=== PATIENT | female | born 1975 | race Caucasian/White ===

== ENCOUNTER → 2016-10-16 | Outpatient (CLI) | payer OTHER ==
--- NOTE | 2016-10-16 14:24 | Diagnostic Imaging Report ---
Right breast ultrasound. INDICATION: Right breast mass. FINDINGS: At the 8 o'clock zone, 7 cm from the nipple, there is a 1.4 x 0.9 x 1.7-cm mass with deep wall lobulation again demonstrated. This demonstrates no internal color Doppler flow and may represent an extrinsic effect. No adverse development. IMPRESSION: Stable 1.7-cm 8 o'clock right breast cystic lesion with a focal lobulation along its posterior wall without internal vascularity is favored to be debris or extrinsic impression on the cyst rather than a solid nodule. Another followup ultrasound when the patient is due for her bilateral mammogram in February 2017 is recommended to ensure further stability. ACR BI-RADS Category 3: Probably benign findings. Result letter will be mailed to the patient. Note: At least 10% of breast cancer is not imaged by mammography. Dictated by: Dictated on workstation # [id number]
== END ==
LOC: RAD 08:43
PROVIDERS: ATTEND Obstetrics & Gynecology
DX: R92.8 Other abnormal and inconclusive findings on diagnostic imaging of breast (principal)

== ENCOUNTER → 2017-06-22 | Outpatient (CLI) | payer OTHER ==
--- NOTE | 2017-06-22 21:34 | Diagnostic Imaging Report ---
EXAM: Bilateral breast ultrasound. INDICATION: Followup cystic lesion in the outer aspect of the right breast. TECHNIQUE: All four quadrants and the retroareolar region were examined on this study. FINDINGS: The right breast demonstrates a 2 cm cyst at the 8 o'clock zone 7 cm from the nipple. Previously seen septation is not demonstrated at this time. No internal vascularity and no significant debris or nodule. The other 4 quadrants and retroareolar region of the right breast and the 4 quadrants and retroareolar regions of the left breast demonstrate no significant abnormality. IMPRESSION: 2 cm cyst in the outer aspect of the right breast. Dictated by: Dictated on workstation # [id number]
--- NOTE | 2017-06-22 22:33 | Diagnostic Imaging Report ---
Bilateral screening mammogram 2D views with tomosynthesis The current study was also evaluated with a Computer Aided Detection (CAD) system. INDICATION: Screening. No current complaints stated on the questionnaire. COMPARISON: 03/07/2016. FINDINGS: The breasts are composed of heterogeneously dense parenchyma which may decrease mammographic sensitivity. There is a mass measuring 2 cm in the lateral aspect of the right breast with well-circumscribed margins without change from the prior exams. No adverse development or suspicious cluster of calcifications seen. IMPRESSION: Dense breasts. Stable 2 cm lateral right breast mass. Ultrasound evaluation is pending. ACR BI-RADS Category 0: Incomplete. (Needs additional imaging evaluation). Result letter will be mailed to the patient. Note: At least 10% of breast cancer is not imaged by mammography. Dictated by: Dictated on workstation # [id number]
== END ==
LOC: RAD 07:40
PROVIDERS: ATTEND Obstetrics & Gynecology
DX: Z12.31 Encounter for screening mammogram for malignant neoplasm of breast (principal); N60.01 Solitary cyst of right breast
CPT/HCPCS: 77067

== ENCOUNTER → 2018-07-09 | Outpatient (CLI) | payer OTHER ==
--- NOTE | 2018-07-12 09:02 | Diagnostic Imaging Report ---
Indication: Routine screening. Comparison is made with prior mammogram from 06/22/2017 and 03/07/2016. 2-D and 3-D bilateral screening mammography was performed with CAD. Both breasts are heterogeneously dense, limiting the sensitivity of mammography. The lobulated circumscribed mass in the outer portion of the right breast appears to be fairly stable and previously shown to represent a cyst. No new mass or malignant-appearing microcalcifications are seen. Axillae are unremarkable. Impression: BI-RADS category 2 No mammographic features suspicious for malignancy are identified. ACR BI-RADS Category 2: Benign findings. Result letter will be mailed to the patient. Note: At least 10% of breast cancer is not imaged by mammography. Dictated by: Dictated on workstation # [id number]
== END ==
LOC: RAD 10:42
PROVIDERS: ATTEND Obstetrics & Gynecology
DX: Z12.31 Encounter for screening mammogram for malignant neoplasm of breast (principal)
CPT/HCPCS: 77067

== ENCOUNTER → 2018-10-07 | Outpatient (CLI) | payer OTHER ==
--- NOTE | 2018-10-07 19:17 | Diagnostic Imaging Report ---
PROCEDURE: CT sinuses without contrast TECHNIQUE: Multiple contiguous axial images were obtained through the sinuses without the use of intravenous contrast. Coronal and sagittal reformations were then performed. INDICATION: Chronic sinus disease. COMPARISON: None. FINDINGS: Air-fluid level is seen in the left maxillary sinus. Ostiomeatal complexes are patent bilaterally. There is a small mucus retention cyst seen in the floor of the right maxillary sinus. Remainder of the visualized paranasal sinuses is clear. Nasal septum is midline. There is no osseous lesion. Orbits are symmetric. The globes are unremarkable. IMPRESSION: Left maxillary sinusitis. Dictated by: Dictated on workstation # [id number]
== END ==
LOC: RAD 14:34
PROVIDERS: ATTEND Otolaryngology Otolaryngology/Facial Plastic Surgery
DX: J32.0 Chronic maxillary sinusitis (principal)
CPT/HCPCS: 70486

== ENCOUNTER 2018-12-27 11:00 | Outpatient (CLI) | payer OTHER ==
[~2018-12-27] VITALS: Ht 172.7 cm; Wt 68.0 kg
== END 2018-12-27 16:00 | disposition home or self-care (01) ==
LOC: PREOP 11:00
PROVIDERS: ATTEND Otolaryngology Otolaryngology/Facial Plastic Surgery
DX: Z01.818 Encounter for other preprocedural examination (principal)

== ENCOUNTER 2018-12-30 07:34 | Day surgery (SDC) | payer OTHER ==
[~2018-12-30] VITALS: Ht 172.7 cm; Wt 68.0 kg
[2018-12-30] VITALS (13 sets, daily range): BP systolic 131–157; BP diastolic 90–114
--- OUTSIDE RECORDS SUMMARY | 2018-12-30 07:36 | XMS REPORT ---
Author Author Migration, Doctor Organization [facility] Address Unknown Phone Unavailable Care Team Providers Care Acoustical Engineer Name Role Phone Migration, Doctor Unavailable Unavailable PROBLEMS Type Condition ICD9-CM Code [id number] Code Onset Dates Condition Status SNOMED Code Problem Need for prophylactic vaccination and inoculation, Influenza V04.81 Active 457020398 Problem Acute sinusitis, unspecified 461.9 Active 03876857 ALLERGIES No Information ENCOUNTERS Encounter Location Date Diagnosis [facility] [address] [address] Apr, Encounter for immunization Z23 [facility] [address] [id number] Mar, Encounter for immunization Z23 [facility] [address] [id number] Apr, Encounter for immunization Z23 [facility] [address] [address] Apr, Encounter for immunization Z23 [facility] [id number] [place] [address] Oct, [facility] [id number] [place] [address] Oct, [facility] [id number] [place] [address] Jun, [facility] [id number] [place] [address] Jun, [facility] [id number] [place] [address] Apr, [facility] [id number] [place] [address] Apr, [facility] [address] [facility] [id number] [place] [address] Apr, [facility] [address] [facility] [address] [id number], [place] [address] Apr, [facility] [address] [facility] [address] [id number], [place] [address] Apr, [facility] [address] [facility] [address] [id number], [place] [address] Apr, IMMUNIZATIONS No Known Immunizations SOCIAL HISTORY Never Assessed REAS[place] FOR V[place]IT [place] [place] VITAL SIGNS MEDICATIONS Medication Instructions Dosage Frequency Start Date End Date Duration Status Bactrim DS 800-160 mg 1 tablet by Oral route 2 times per day for 7 day(s) Jun, Active RESULTS No Results PROCEDURES No Known procedures INSTRUCTIONS MEDICATIONS ADMINISTERED No Known Medications
--- OUTSIDE RECORDS SUMMARY | 2018-12-30 07:36 | XMS REPORT ---
Author Author Migration, Doctor Organization [facility] Address Unknown Phone Unavailable Care Team Providers Care Pull Tab Dealer Name Role Phone Migration, Doctor Unavailable Unavailable PROBLEMS Type Condition ICD9-CM Code JPK89-HM Code Onset Dates Condition Status SNOMED Code Problem Need for prophylactic vaccination and inoculation, Influenza V04.81 Active 812542881 Problem Acute sinusitis, unspecified 461.9 Active 05450243 ALLERGIES No Information ENCOUNTERS Encounter Location Date Diagnosis [facility] [address] [address] Apr, Encounter for immunization Z23 [facility] [address] [id number] Mar, Encounter for immunization Z23 [facility] [address] [id number] Apr, Encounter for immunization Z23 [facility] [address] [address] Apr, Encounter for immunization Z23 [facility] [id number] [place] [address] Oct, [facility] [id number] [place] [address] Oct, [facility] [id number] [place] [address] Jun, [facility] [id number] [place] [address] Jun, [facility] [id number] [place] [address] Apr, [facility] [id number] [place] [address] Apr, [facility] [address] [facility] [id number] [place] [address] Apr, [facility] [address] [facility] [id number], [place] [address] Apr, [facility] [address] [facility] [id number], [place] [address] Apr, [facility] [address] [facility] [id number], [place] [address] Apr, IMMUNIZATIONS No Known Immunizations SOCIAL HISTORY Never Assessed REASON FOR VISIT EMR-[facility] [place] PLAN OF CARE VITAL SIGNS MEDICATIONS Unknown Medications RESULTS No Results PROCEDURES No Known procedures INSTRUCTIONS MEDICATIONS ADMINISTERED No Known Medications
--- OUTSIDE RECORDS SUMMARY | 2018-12-30 07:37 | XMS REPORT ---
Author Author RAUL CORONADO Organization [facility] Address [address] [place] [address] Care Team Providers Care Leadership Intern Name Role Phone RAUL CORONADO Unavailable PROBLEMS Type Condition ICD9-CM Code DJK89-WL Code Onset Dates Condition Status SNOMED Code Problem Acute sinusitis, unspecified 461.9 Active 36895140 Problem Need for prophylactic vaccination and inoculation, Influenza V04.81 Active 820805709 ALLERGIES No Information ENCOUNTERS Encounter Location Date Diagnosis [place] [id number] [address] Apr, Encounter for immunization Z23 [facility] [id number] [place] [id number] Mar, Encounter for immunization 23 [facility] [address] [id number] Apr, Encounter for immunization 23 [facility] [place] [id number] [place] [address] Apr, Encounter for immunization 23 [facility] [place] [id number] [place] [address] Oct, [facility] [place] [id number] [place] [address] Oct, [facility] [place] [address] [address] Jun, [facility] [place] [id number] [place] [address] Jun, [facility] [place] [address] [address] Apr, [facility] [place] [address] [facility] [id number] [place] [address] Apr, [facility] [place] [address] [facility] [id number] [place] [address] Apr, [facility] [place] [address] [facility] [id number] [place] [address] Apr, [facility] [place] [address] [facility] [id number] [place] [address] Apr, [facility] [place] [address] [facility] [id number] [place] [address] Apr, IMMUNIZATIONS Vaccine Route Administration Date Status FLULAVAL QUAD 0.5ML (6 MO & UP) 2018 IM Intramuscular May 21, 2018 Administered SOCIAL HISTORY Never Assessed REASON FOR VISIT Flu shot PLAN OF CARE VITAL SIGNS MEDICATIONS Unknown Medications RESULTS No Results PROCEDURES Procedure Date Ordered Result Body Site FLULAVAL QUAD 0.5ML (6 MO AND UP) 2018 May 21, 2018 SINGLE IMMUNIZATION ADMIN May 21, 2018 INSTRUCTIONS MEDICATIONS ADMINISTERED No Known Medications
--- OUTSIDE RECORDS SUMMARY | 2018-12-30 07:37 | XMS REPORT ---
Author Author RAMIREZ BHATIA [facility] Address [address] [place] [address] Care Team Providers Care Erp Technical Lead Name Role Phone JANNETTE RAMIREZ Unavailable PROBLEMS Type Condition ICD9-CM Code AHI72-KR Code Onset Dates Condition Status SNOMED Code Problem Acute sinusitis, unspecified 461.9 Active 02198569 Problem Need for prophylactic vaccination and inoculation, Influenza V04.81 Active 284568529 ALLERGIES No Information ENCOUNTERS Encounter Location Date Diagnosis [facility] [id number] [place] [id number] Mar, Encounter for immunization Z23 [facility] [address] [id number] Apr, Encounter for immunization 23 [facility] [id number] [place] [address] Apr, Encounter for immunization 23 [facility] [id number] [place] [address] Oct, [facility] [id number] [place] [address] Oct, [facility] [id number] [place] [address] Jun, [facility] [id number] [place] [address] Jun, [facility] [id number] [place] [address] Apr, [facility] [id number] [place] [address] Apr, [facility] [address] [id number] [place] [address] Apr, [facility] [address] [facility] [id number] [place] [address] Apr, [facility] [address] [facility] [id number], [place] [address] Apr, [facility] [address] [facility] [id number], [place] [address] Apr, IMMUNIZATIONS Vaccine Route Administration Date Status FLUARIX QUAD (3 AND UP) 2017 IM Intramuscular Apr 17, 2017 Administered SOCIAL HISTORY Never Assessed REASON FOR VISIT Flu Vaccine-[facility] APPLIANCE PARTS COUNTER CLERK/COOLING TOWER OPERATOR PLAN OF CARE VITAL SIGNS MEDICATIONS Unknown Medications RESULTS No Results PROCEDURES Procedure Date Ordered Result Body Site FLUARIX QUAD (3 & UP)--2014Apr 17, 2017 SINGLE IMMUNIZATION ADMIN Apr 17, 2017 INSTRUCTIONS MEDICATIONS ADMINISTERED No Known Medications
--- OUTSIDE RECORDS SUMMARY | 2018-12-30 07:37 | XMS REPORT | Continuity of Care Document ---
Author Organization Unknown Address Unknown Allergies Active Description Code Type Severity Reaction Onset Reported/Identified Relationship to Patient Clinical Status Yes No Known Drug Allergies [id number] Drug Allergy Unknown N/A 07/18/2008 Medications There is no data. Problems Date Dx Coded Attending Type Code Diagnosis Diagnosed By 05/06/2012 ANIKET JACKSON, GARTH A V04.81 FLU DX (3 YRS AND ABOVE, IM) 05/06/2012 RAJQUINTONE CLIENT SERVICE CONSULTANT, GARTH A V04.81 FLU DX (3 YRS AND ABOVE, IM) 05/06/2012 ALIREZAE CLIENT SERVICE CONSULTANT, GARTH A V04.81 FLU DX (3 YRS AND ABOVE, IM) 07/13/2014 ANIKET JACKSON GARTH A 461.9 SINUSITIS ACUTE 03/07/2016 Ot 780.60 FEVER, UNSPECIFIED 03/07/2016 Ot 786.2 COUGH 03/07/2016 Ot 793.19 OTHER NONSPECIFIC ABNORMAL FINDING OF DOM 03/07/2016 LULI SORENSEN SIX HORSE HITCH DRIVER Ot 786.2 COUGH 03/10/2016 JESSICA SALDANA DO Ot Z12.31 ENCNTR SCREEN MAMMOGRAM FOR MALIGNANT NE 03/10/2016 SALDANA DO JESSICA C Ot Z12.31 ENCNTR SCREEN MAMMOGRAM FOR MALIGNANT NE 04/01/2016 SALDANA DO JESSICA C Ot R92.8 OTH ABN AND INCONCLUSIVE FINDINGS ON DX 04/03/2016 SALDANA DO, JESSICA C Ot R92.8 OTH ABN AND INCONCLUSIVE FINDINGS ON DX 04/04/2016 SALDANA DO, JESSICA C Ot Z12.31 ENCNTR SCREEN MAMMOGRAM FOR MALIGNANT NE 04/16/2016 SALDANA DO JESSICA C Ot R92.8 OTH ABN AND INCONCLUSIVE FINDINGS ON DX 10/16/2016 Ot 780.60 FEVER, UNSPECIFIED 10/16/2016 Ot 786.2 COUGH 10/16/2016 Ot 793.19 OTHER NONSPECIFIC ABNORMAL FINDING OF DOM 10/16/2016 LULI SORENSEN S[employer] HITCH DRIVER Ot 786.2 COUGH 10/16/2016 SALDANA DO, JESSICA C Ot Z12.31 ENCNTR SCREEN MAMMOGRAM FOR MALIGNANT NE 10/16/2016 SALDANA DO, JESSICA C Ot R92.8 OTH ABN AND INCONCLUSIVE FINDINGS ON DX 10/16/2016 SALDANA DO, JESSICA C Ot R92.8 OTH ABN AND INCONCLUSIVE FINDINGS ON DX 11/06/2016 SALDANA DO, JESSICA C Ot R92.8 OTH ABN AND INCONCLUSIVE FINDINGS ON DX 06/10/2017 Ot 780.60 FEVER, UNSPECIFIED 06/10/2017 Ot 786.2 COUGH 06/10/2017 Ot 793.19 OTHER NONSPECIFIC ABNORMAL FINDING OF DOM 06/10/2017 LULI SORENSEN S[employer] H[employer] DRIVER Ot 786.2 COUGH 06/10/2017 SALDANA DO, JESSICA C Ot Z12.31 ENCNTR SCREEN MAMMOGRAM FOR MALIGNANT NE 06/10/2017 SALDANA DO, JESSICA C Ot R92.8 OTH ABN AND INCONCLUSIVE FINDINGS ON DX 06/10/2017 SALDANA DO, JESSICA C Ot R92.8 OTH ABN AND INCONCLUSIVE FINDINGS ON DX 07/15/2017 SALDANA DO, JESSICA C Ot N60.01 SOLITARY CYST OF RIGHT BREAST 07/15/2017 SALDANA DO, JESSICA C Ot Z12.31 ENCNTR SCREEN MAMMOGRAM FOR MALIGNANT NE 07/13/2018 SALDANA DO, JESSICA C Ot Z12.31 ENCNTR SCREEN MAMMOGRAM FOR MALIGNANT NE 08/05/2018 SALDANA DO, JESSICA C Ot Z12.31 ENCNTR SCREEN MAMMOGRAM FOR MALIGNANT NE 10/05/2018 LULI SORENSEN S[employer] HITCH DRIVER Ot 786.2 COUGH 10/05/2018 SALDANA DO, JESSICA C Ot Z12.31 ENCNTR SCREEN MAMMOGRAM FOR MALIGNANT NE 10/05/2018 SALDANA DO, JESSICA C Ot R92.8 OTH ABN AND INCONCLUSIVE FINDINGS ON DX 10/05/2018 SALDANA DO, JESSICA C Ot R92.8 OTH ABN AND INCONCLUSIVE FINDINGS ON DX 10/05/2018 SALDANA DO, JESSICA C Ot N60.01 SOLITARY CYST OF RIGHT BREAST 10/05/2018 SALDANA DO, JESSICA C Ot Z12.31 ENCNTR SCREEN MAMMOGRAM FOR MALIGNANT NE 10/05/2018 SALDANA DO, JESSICA C Ot Z12.31 ENCNTR SCREEN MAMMOGRAM FOR MALIGNANT NE 11/02/2018 VITALY SMITH MD Ot J32.0 CHRONIC MAXILLARY SINUSITIS 12/24/2018 VITALY SMITH MD Ot Z01.818 ENCOUNTER FOR OTHER PREPROCEDURAL EXAMIN 12/27/2018 VITALY SMITH MD Ot Z01.818 ENCOUNTER FOR OTHER PREPROCEDURAL EXAMIN 12/27/2018 VITALY SMITH MD Ot Z01.818 ENCOUNTER FOR OTHER PREPROCEDURAL EXAMIN 12/28/2018 VITALY SMITH MD Ot Z01.818 ENCOUNTER FOR OTHER PREPROCEDURAL EXAMIN Procedures Code [place] [address] THERAPUTIC INJ SQ/IM 07/13/2014 J1040 DEPO MEDROL 80 MG INJ 07/13/2014 Results There is no data. Encounters ACCT No. Visit Date/Time Discharge Status Pt. Type Provider Facility Loc./Unit Complaint [id number] 07/13/2014 08:45:00 07/13/2014 23:59:59 CLS Outpatient GARTH MARCIAL APRN [id number] 04/27/2014 15:23:00 04/27/2014 23:59:59 CLS Outpatient GARTH MARCIAL APRN [id number] 05/12/2013 12:08:00 05/12/2013 23:59:59 CLS Outpatient GARTH MARCIAL APRN [id number] 12/27/2018 11:00:00 12/27/2018 16:00:00 DIS Outpatient VITALY SMITH MD [facility] PREOP TURBINATE HYPERTROPHY,CHRONIC SINUSITIS [id number] 10/07/2018 14:34:00 10/07/2018 23:59:59 CLS Outpatient VITALY SMITH MD [facility] RAD CHRONIC SINUSITIS [id number] 06/25/2018 07:15:00 06/25/2018 23:59:59 CLS Outpatient JESSICA SALDANA DO [facility] RAD SCREENING [id number] 06/22/2017 07:40:00 06/22/2017 23:59:59 CLS Outpatient JESSICA SALDANA DO [facility] RAD Z12.39,N60.01 [id number] 10/16/2016 08:43:00 10/16/2016 23:59:59 CLS Outpatient JESSICA SALDANA DO [facility] RAD ABN MAMMO OF RIGHT BREAST [id number] 03/27/2016 14:03:00 03/27/2016 23:59:59 CLS Outpatient JESSICA SALDANA DO [facility] RAD ABNORMAL MAMMO OR RT BREAST [id number] 03/07/2016 09:47:00 03/07/2016 23:59:59 CLS Outpatient JESSICA SALDANA DO [facility] RAD ROUTINE SCREENING [id number] 02/08/2014 12:07:00 02/08/2014 23:59:59 CLS Outpatient LULI SORENSEN S[employer] HITCH DRIVER [facility] RAD COUGH [id number] 12/30/2018 09:30:00 DOMINIQUE SMITH MD, VITALY Baeza [facility] SDC TURBINATE HYPERTROPHY, CHRONIC SINUSITIS [id number] 08/04/2012 12:18:00 Document Registration
[2018-12-30] MEDS ORDERED: LACTATED RINGERS 1,000 ML IV PRN (07:48)
--- NOTE | 2018-12-30 07:56 | Progress Note-Pre Operative ---
Pre-Operative Progress Note H&P Reviewed The H&P was reviewed, patient examined and no changes noted. Date Seen by Provider: Dec 30, 2018 Time Seen by Provider: 08:00 Date H&P Reviewed: Dec 30, 2018 Time H&P Reviewed: 08:00 Pre-Operative Diagnosis: Bilat Chronic Sinusitis, Deviated Nasal Septum, Bilat Hyper of Inf Turbs VITALY SMITH MD Dec 30, 2018 07:56
[2018-12-30] MEDS ORDERED: AMPICILLIN/SULBACTAM INJECTION 1.5 GM in NS (IVPB) 100 ML IV ONE (08:00)
[2018-12-30] MEDS ORDERED: HYDROCORTISONE 100 MG/2 ML (Solu-CORTEF) VIAL IV ONE (08:00)
[2018-12-30] MEDS ORDERED: CATHETER FLUSH 10 ML SYR IV PRN (08:00)
[2018-12-30] MEDS ORDERED: LIDOCAINE/EPI 1%-1:100,000 (XYLOCAINE) 20ML ONE (08:04)
[2018-12-30] MEDS ORDERED: PHENYLEPHRINE 0.5% NASAL SPR (NEO-SYNEPHRINE) REG ONE (08:04)
[2018-12-30] MEDS ORDERED: COCAINE HCL 4% 2 ML SYR ONE (08:04)
[2018-12-30] MEDS ORDERED: BSS 15 ML ONE (08:04)
[2018-12-30] MEDS ORDERED: MIDAZOLAM 2 MG/2 ML (VERSED) VIAL ONE (08:28)
[2018-12-30] MEDS ORDERED: LIDOCAINE PF 2% 5 ML (XYLOCAINE) VIAL ONE (08:29)
[2018-12-30] MEDS ORDERED: fentaNYL INJECTION 100 MCG/2 ML AMP ONE ×2 (08:29→09:56)
[2018-12-30] MEDS ORDERED: ONDANSETRON 4 MG/2 ML (SDV) Z0FRAN ONE (08:29)
[2018-12-30] MEDS ORDERED: ROCURONIUM 10 MG/ML 5 ML SYRINGE IV ONE (08:29)
[2018-12-30] MEDS ORDERED: DEXAMETHASONE 10 MG/ML (DECADRON) 1 ML VIAL ONE (08:29)
[2018-12-30] MEDS ORDERED: proPOfol 200 MG/20 ML (DIPRIVAN) VIAL IV ONE (08:30)
[2018-12-30 08:35] LABS: BASOPHILS # (AUTO) 0.1 10^3/uL (0.0-0.1); BASOPHILS % (AUTO) 0 % (0-10); EOSINOPHILS # (AUTO) 0.1 10^3/uL (0.0-0.3); EOSINOPHILS % (AUTO) 1 % (0-10); HEMATOCRIT 42 % (35-52); HEMOGLOBIN 14.1 G/DL (11.5-16.0); LYMPHOCYTES # (AUTO) 5.5 X 10^3 (1.0-4.0); LYMPHOCYTES % (AUTO) 33 % (12-44); MEAN CORPUSCULAR HEMOGLOBIN 31 PG (25-34); MEAN CORPUSCULAR HGB CONC 34 G/DL (32-36); MEAN CORPUSCULAR VOLUME 92 FL (80-99); MEAN PLATELET VOLUME 8.9 FL (7.4-10.4); MONOCYTES # (AUTO) 1.1 X 10^3 (0.0-1.0); MONOCYTES % (AUTO) 7 % (0-12); NEUTROPHILS % (AUTO) 60 % (42-75); PLATELET COUNT 420 10^3/uL (130-400); RED CELL DISTRIBUTION WIDTH 13.5 % (10.0-14.5); WHITE BLOOD COUNT 16.8 10^3/uL (4.3-11.0)
[2018-12-30 08:46] LABS: BUN/CREATININE RATIO 21; CALCIUM 9.4 MG/DL (8.5-10.1); CARBON DIOXIDE 24 MMOL/L (21-32); CHLORIDE 104 MMOL/L (98-107); GFR ESTIMATED > 60; GLUCOSE 79 MG/DL (70-105); POTASSIUM 3.6 MMOL/L (3.6-5.0); SODIUM 140 MMOL/L (135-145)
[2018-12-30 09:12] LABS: BAND NEUTROPHILS 1 %; BASOPHILS % (MANUAL) 0 %; EOSINOPHILS % (MANUAL) 1 %; LYMPHOCYTES % (MANUAL) 39 %; MONOCYTES % (MANUAL) 4 %; NEUTROPHILS % (MANUAL) 55 %; RBC MORPH NORMAL
[2018-12-30] MEDS ORDERED: D5 1/2 NS W/KCL 20 MEQ/L 1,000 ML IV SCH (10:37)
--- NOTE | 2018-12-30 10:37 | Progress Note-Post Operative ---
Post-Operative Progess Note Surgeon (s)/Instructor Product Inspection (s) Surgeon VITALY SMITH MD Instructor Product Inspection n/a Pre-Operative Diagnosis Bilat Chronic Sinusitis, Deviated Nasal Septum, Bilat Hyper of Inf Turbs Post-Operative Diagnosis same Post-Op Procedure Note Date of Procedure: Dec 30, 2018 Name of Procedure Performed: Bilat ESS, Septoplsaty, Bilat Red of Inf Turbs Description & Findings Description and Findings: n/a Anesthesia Type get Estimated Blood Loss minimal Packing dnp bilat Specimen(s) collected/removed bilat chronic sinus disease VITALY SMITH MD Dec 30, 2018 10:37
[2018-12-30] MEDS ORDERED: PROMETHAZINE INJ 25 MG/ML (PHENERGAN) AMP IVP PRN (10:45)
[2018-12-30] MEDS ORDERED: predniSONE 20 MG TAB PO ONE (10:45)
[2018-12-30] MEDS ORDERED: HYDROmorphone 2 MG/ML VIAL (DILAUDID) IV ONE (10:45)
[2018-12-30] MEDS ORDERED: morphine INJ 10 MG/ML 1ML (SYR OR VIAL) IVP ONE (10:45)
[2018-12-30] MEDS ORDERED: ONDANSETRON 4 MG/2 ML (SDV) Z0FRAN IVP PRN (10:45)
[2018-12-30] MEDS ORDERED: HYDROcodone/APAP 5 MG/325 MG (LORTAB) TAB PO PRN (10:45)
[2018-12-30] MEDS ORDERED: ACETAMINOPHEN 325 MG TABLET PO PRN (10:45)
[2018-12-30] MEDS ORDERED: SEVOFLURANE (ULTANE) 15 ML INHAL SOLN ONE ×2 (10:50→10:56)
[2018-12-30] MEDS ORDERED: ESMOLOL 100 MG/10 ML (BREVIBLOC) VIAL ONE (10:51)
[2018-12-30] MEDS ORDERED: PRD20T PO (11:11)
[2018-12-30] MEDS ORDERED: AMOX-355 PO (11:11)
[2018-12-30] MEDS ORDERED: HYDR-3062 PO (11:11)
--- NOTE | 2018-12-30 13:06 | Anesthesia-General Post-Op ---
General Patient Condition Mental Status/LOC: Same as Preop Cardiovascular: Satisfactory Nausea/Vomiting: Absent Respiratory: Satisfactory Pain: Controlled Complications: Absent Post Op Complications Complications None Follow Up Care/Instructions Patient Instructions None needed. Anesthesia/Patient Condition Patient Condition Patient is doing well, no complaints, stable vital signs, no apparent adverse anesthesia problems. No complications reported per nursing. QASIM JUÁREZ CRNA Dec 30, 2018 13:06
[2018-12-30] MEDS ORDERED: predniSONE 20 MG TAB ONE (14:42)
== END 2018-12-30 15:10 | disposition home or self-care (01) ==
LOC: SDC 07:34
PROVIDERS: ATTEND Otolaryngology Otolaryngology/Facial Plastic Surgery
DX: J32.3 Chronic sphenoidal sinusitis (principal); J34.2 Deviated nasal septum; J34.3 Hypertrophy of nasal turbinates
CPT/HCPCS: 36415; 80048; 85007; 85027; 87081; 88305; 88311

== ENCOUNTER 2019-01-14 12:46 | Emergency (ER) | payer OTHER ==
[~2019-01-14] VITALS: Ht 172.7 cm; Wt 70.3 kg
[~2019-01-14 12:46] MED LIST: AMOX-355 PO; HYDR-3062 PO; PRD20T PO
[2019-01-14] MEDS ORDERED: NS IV 1000 ML 1,000 ML IV SCH (13:40)
[2019-01-14 13:44] LABS: BILIRUBIN,URINE NEGATIVE (NEGATIVE); CLARITY,URINE SLIGHTLY CLOUDY; COLOR,URINE YELLOW; GLUCOSE, URINE (UA) NEGATIVE (NEGATIVE); KETONES,URINE NEGATIVE (NEGATIVE); LEUKOCYTE ESTERASE ,URINE 1+ (NEGATIVE); NITRITE,URINE NEGATIVE (NEGATIVE); PH,URINE 6 (5-9); PROTEIN,URINE NEGATIVE (NEGATIVE); UROBILINOGEN,URINE NORMAL (NORMAL)
[2019-01-14 13:51] LABS: BACTERIA,URINE LARGE /HPF
[2019-01-14 15:02] LABS: BASOPHILS # (AUTO) 0.1 10^3/uL (0.0-0.1); BASOPHILS % (AUTO) 0 % (0-10); EOSINOPHILS # (AUTO) 0.1 10^3/uL (0.0-0.3); EOSINOPHILS % (AUTO) 0 % (0-10); HEMATOCRIT 43 % (35-52); HEMOGLOBIN 14.1 G/DL (11.5-16.0); LYMPHOCYTES # (AUTO) 2.1 X 10^3 (1.0-4.0); LYMPHOCYTES % (AUTO) 10 % (12-44); MEAN CORPUSCULAR HEMOGLOBIN 31 PG (25-34); MEAN CORPUSCULAR HGB CONC 33 G/DL (32-36); MEAN CORPUSCULAR VOLUME 93 FL (80-99); MEAN PLATELET VOLUME 8.8 FL (7.4-10.4); MONOCYTES # (AUTO) 1.5 X 10^3 (0.0-1.0); MONOCYTES % (AUTO) 7 % (0-12); NEUTROPHILS # (AUTO) 17.3 X 10^3 (1.8-7.8); NEUTROPHILS % (AUTO) 82 % (42-75); PLATELET COUNT 392 10^3/uL (130-400); RED CELL DISTRIBUTION WIDTH 13.4 % (10.0-14.5)
[2019-01-14] MEDS ORDERED: KETOROLAC 30 MG/ML VIAL IVP STA (15:08)
[2019-01-14] MEDS ORDERED: fentaNYL INJECTION 100 MCG/2 ML AMP IVP ONE (15:15)
[2019-01-14] MEDS ORDERED: ONDANSETRON 4 MG/2 ML (SDV) Z0FRAN IVP ONE (15:15)
[2019-01-14 15:17] LABS: BAND NEUTROPHILS 0 %; LYMPHOCYTES % (MANUAL) 11 %; MONOCYTES % (MANUAL) 8 %; NEUTROPHILS % (MANUAL) 81 %
[2019-01-14 15:18] LABS: BASOPHILS % (MANUAL) 0 %; EOSINOPHILS % (MANUAL) 0 %; RBC MORPH NORMAL
[2019-01-14 15:22] LABS: ALANINE AMINOTRANSFERASE 26 U/L (0-55); ALBUMIN 4.5 GM/DL (3.2-4.5); ALKALINE PHOSPHATASE 81 U/L (40-136); BILIRUBIN,TOTAL 0.4 MG/DL (0.1-1.0); BUN/CREATININE RATIO 12; CALCIUM 10.5 MG/DL (8.5-10.1); CARBON DIOXIDE 24 MMOL/L (21-32); CHLORIDE 101 MMOL/L (98-107); CREATININE SERUM 0.74 MG/DL (0.60-1.30); GFR ESTIMATED > 60; GLUCOSE 97 MG/DL (70-105); POTASSIUM 3.7 MMOL/L (3.6-5.0); SODIUM 139 MMOL/L (135-145)
[2019-01-14] MEDS ORDERED: cefTRIAXone FOR IV USE 2,000 MG in WATER (STERILE) FOR INJECTION 20 ML IV ONE (16:00)
--- NOTE | 2019-01-14 16:20 | ED Headache ---
General Chief Complaint: Head/Cervical Problems Stated Complaint: SPENCE Nursing Triage Note: Pt to ED with report of having sinus surgery by Dr. Dugan on December. Pt reports SPENCE began yesterday and has worsened today. Pt took Tylenol this AM. Pt c/o blurry vision. Pt c/o neck in teeth, back of head. Pt reports pain feels like head is in a vice and someone is taking a hammer to back of head. Pt reports nausea and lightheadedness. Pt has not taken prescribed hydrocodone. Nursing Sepsis Screen: No Definite Risk History of Present Illness Date Seen by Provider: Jan 14, 2019 Time Seen by Provider: 13:45 Initial Comments 43-year-old female presents for headache. She had sinus surgery by Dr. Dugan approximately 2 weeks ago. She awoke this morning and was feeling okay and then began to have a severe headache and mild nausea. She was evaluated by Dr. Dugan and referred here for further examination and treatment. She does not have a history of recurrent headaches or migraines. The pain seems to be in the frontal lobe bilaterally. She is having trace clear sinus drainage. She denies running a fever recently. She has not been on steroids or antibiotics since right after surgery. She took Tylenol earlier today with no resolution in her symptoms. Timing/Duration: 4-6 hours Severity/Quality: severe Location: frontal Prior Headaches/Recent Trauma: no recent headache/trauma Associated Symptoms: No confusion, No fever/chills, No flushing, No loss of consciousness; nausea/vomiting, nasal congestion, nasal drainage; No seizures, No sinus infection, No vision changes Allergies and Home Medications Allergies Coded Allergies: No Known Drug Allergies (Verified Allergy, Unknown, 07/18/08) Home Medications Amoxicillin/Potassium Clav 1 Each Tablet, 1 EACH PO BID Prescribed by: CLIFTON RADER on 12/30/18 1111 Cefdinir 300 Mg Capsule, 300 MG PO BID Prescribed by: NACHO HERRON on 01/14/19 1704 Hydrocodone/Acetaminophen 1 Each Tablet, 1-2 EACH PO Q4H PRN for PAIN-MODERATE Prescribed by: CLIFTON RADER on 12/30/18 1111 Prednisone 20 Mg Tab, 20 MG PO DAILY Take 3 tabs(60mg)daily, decrease by 1/2 tab(10mg)daily. Prescribed by: CLIFTON RADER on 6/6/19 1111 Prednisone 10 Mg Tab.ds.pk, 10 MG PO DAILY Take 6 tabs(60mg)daily,decrease by 1 tab(10mg)every other day. Prescribed by: NACHO HERRON on 01/14/19 170 Tramadol HCl 50 Mg Tablet, 50 MG PO Q6H PRN for PAIN Prescribed by: NACHO HERRON on 01/14/19 1707 Patient Home Medication List Home Medication List Reviewed: Yes Review of Systems Review of Systems Constitutional: no symptoms reported, see HPI Ears, Nose, Mouth, Throat: see HPI, nose discharge Psychiatric/Neurological: See HPI, Headache All Other Systems Reviewed Negative Unless Noted: Yes Past Feyflqm-Qpljcf-Vucsvg Hx Past Med/Social Hx: Reviewed Nursing Past Med/Soc Hx Patient Social History Alcohol Use: Denies Use Recreational Drug Use: No 2nd Hand Smoke Exposure: No Recent Foreign Travel: No Contact w/Someone Who Travel: No Recent Infectious Disease Expo: No Recent Hopitalizations: No Seasonal Allergies Seasonal Allergies: Yes Past Medical History Surgeries: Yes (wisdom teeth, sinus sx) Hysterectomy Respiratory: No Cardiac: No Neurological: No Reproductive Disorders: No SHEET [employer]ON[employer]ER History: Hysterectomy Sexually Transmitted Disease: No Genitourinary: No Gastrointestinal: No Musculoskeletal: No Endocrine: No HEENT: Yes (deviated septum) Cancer: No Psychosocial: No Integumentary: No Blood Disorders: No Physical Exam Vital Signs Vital Signs - First Documented 01/14/19 13:25 Temp 98.3 Pulse 88 Resp 18 B/P (MAP) 155/107 (123) Pulse Ox 99 O2 Delivery Room Air Capillary Refill : Less Than 3 Seconds Height, Weight, BMI Height: 5'8.00" Weight: 155lbs. 0.0oz. [id number]; 22.8 BMI Method:Stated General Appearance: WD/WN, mild distress HEENT: PERRL/EOMI (secondary to pain photophobia), normal ENT inspection, TMs normal, pharynx normal, photophobia Neck: non-tender, full range of motion, supple, normal inspection; No lymphadenopathy (R), No lymphadenopathy (L); other (no nuchal rigidity, frontal and maxillary sinus tenderness) Cardiovascular: normal peripheral pulses, regular rate, rhythm Respiratory: chest non-tender, lungs clear, normal breath sounds Gastrointestinal: normal bowel sounds, non tender, soft Psychiatric: alert, oriented x 3, depressed affect Crainal Nerves: normal hearing, normal speech, PERRL Coordination/Gait: normal finger to nose, normal gait Motor/Sensory: no motor deficit, no sensory deficit, no pronator drift Skin: normal color, warm/dry Progress/Results/Core Measures Results/Orders Lab Results Laboratory Tests Test 01/14/19 13:35 01/14/19 14:55 01/14/19 14:59 Range/Units Urine Color YELLOW Urine Clarity SLIGHTLY CLOUDY Urine pH 6 5-9 Urine Specific [place] 1.015 L 1.016-1.022 Urine Protein NEGATIVE NEGATIVE Urine Glucose (UA) NEGATIVE NEGATIVE Urine Ketones NEGATIVE NEGATIVE Urine Nitrite NEGATIVE NEGATIVE Urine Bilirubin NEGATIVE NEGATIVE Urine Urobilinogen NORMAL NORMAL MG/DL Urine Leukocyte Esterase 1+ H NEGATIVE Urine RBC (Auto) NEGATIVE NEGATIVE Urine RBC NONE /HPF Urine WBC 2-5 /HPF Urine Squamous Epithelial Cells 5-10 /HPF Urine Crystals NONE /LPF Urine Bacteria LARGE H /HPF Urine Casts NONE /LPF Urine Mucus NEGATIVE /LPF Urine Culture Indicated YES White Blood Count 21.0 H 4.3-11.0 10^3/uL Red Blood Count 4.61 4.35-5.85 10^6/uL Hemoglobin 14.1 11.5-16.0 G/DL Hematocrit 43 35-52 % Mean Corpuscular Volume 93 80-99 FL Mean Corpuscular Hemoglobin 31 25-34 PG Mean Corpuscular Hemoglobin Concent 33 32-36 G/DL Red Cell Distribution Width 13.4 10.0-14.5 % Platelet Count 392 130-400 10^3/uL Mean Platelet Volume 8.8 7.4-10.4 FL Neutrophils (%) (Auto) 82 H 42-75 % Lymphocytes (%) (Auto) 10 L 12-44 % Monocytes (%) (Auto) 7 0-12 % Eosinophils (%) (Auto) 0 0-10 % Basophils (%) (Auto) 0 0-10 % Neutrophils # (Auto) 17.3 H 1.8-7.8 X 10^3 Lymphocytes # (Auto) 2.1 1.0-4.0 X 10^3 Monocytes # (Auto) 1.5 H 0.0-1.0 X 10^3 Eosinophils # (Auto) 0.1 0.0-0.3 10^3/uL Basophils # (Auto) 0.1 0.0-0.1 10^3/uL Neutrophils % (Manual) 81 % Lymphocytes % (Manual) 11 % Monocytes % (Manual) 8 % Eosinophils % (Manual) 0 % Basophils % (Manual) 0 % Band Neutrophils 0 % Blood Morphology Comment NORMAL Sodium Level 139 135-145 MMOL/L Potassium Level 3.7 3.6-5.0 MMOL/L Chloride Level 101 98-107 MMOL/L Carbon Dioxide Level 24 21-32 MMOL/L Anion Gap 14 5-14 MMOL/L Blood Urea Nitrogen 9 7-18 MG/DL Creatinine 0.74 0.60-1.30 MG/DL Estimat Glomerular Filtration Rate > 60 BUN/Creatinine Ratio 12 Glucose Level 97 70-105 MG/DL Calcium Level 10.5 H 8.5-10.1 MG/DL Corrected Calcium 10.1 8.5-10.1 MG/DL Total Bilirubin 0.4 0.1-1.0 MG/DL Aspartate Amino Transf (AST/SGOT) 17 5-34 U/L Alanine Aminotransferase (ALT/SGPT) 26 0-55 U/L Alkaline Phosphatase 81 40-136 U/L Total Protein 8.0 6.4-8.2 GM/DL Albumin 4.5 3.2-4.5 GM/DL C-Reactive Protein High Sensitivity 3.66 H 0.00-0.50 MG/DL My Orders Orders - NACHO HERRON Cbc With Automated Diff (01/14/19 12:49) Comprehensive Metabolic Panel (01/14/19 12:49) Ua Culture If Indicated (01/14/19 12:49) Ed Iv/Invasive Line Start (01/14/19 13:40) Ns Iv 1000 Ml (Sodium Chloride 0.9%) (01/14/19 13:40) Urine Culture (01/14/19 13:35) Manual Differential (01/14/19 14:55) Hs C Reactive Protein (01/14/19 15:08) Ondansetron Injection (Zofran Injectio (01/14/19 15:15) Ketorolac Injection (Toradol Injection) (01/14/19 15:08) Fentanyl Injection (Sublimaze Injection (01/14/19 15:15) Ct Head Wo (01/14/19 13:25) Ceftriaxone For Iv Use (Rocephin For I (01/14/19 16:00) Hydrocortisone Injection (Solu-Cortef In (01/14/19 17:00) Tramadol Tablet (Ultram Tablet) (01/14/19 17:00) Medications Given in ED Current Medications Medications Dose Ordered Sig/Lily Route Start Time Stop Time Status Last Admin Dose Admin Ceftriaxone Sodium 2000 mg/ Sterile Water 20 ml @ 240 mls/hr ONCE ONCE IV 01/14/19 16:00 01/14/19 16:04 DC 01/14/19 16:04 240 MLS/HR Fentanyl Citrate 25 mcg ONCE ONCE IVP 01/14/19 15:15 01/14/19 15:16 DC 01/14/19 15:15 25 MCG Hydrocortisone Sodium Succinate 100 mg ONCE ONCE IV 01/14/19 17:00 01/14/19 17:01 DC 01/14/19 17:12 100 MG Ondansetron HCl 4 mg ONCE ONCE IVP 01/14/19 15:15 01/14/19 15:16 DC 01/14/19 15:15 4 MG Tramadol HCl 50 mg ONCE ONCE PO 01/14/19 17:00 01/14/19 17:01 DC 01/14/19 17:11 50 MG Vital Signs/I&O 01/14/19 01/14/19 13:25 17:30 Temp 98.3 98.3 Pulse 88 88 Resp 18 18 B/P (MAP) 155/107 (123) 155/107 (123) Pulse Ox 99 99 O2 Delivery Room Air Blood Pressure Mean: 123 Progress Progress Note : Time: 13:45 Progress Note 1345 patient seen and evaluated, will give normal saline 1 L per IV, Zofran 4 mg for nausea, Toradol 30 mg IV for headache, and fentanyl 25 g for pain. Will obtain labs and CT head and sinuses. Patient has no nuchal rigidity. 1500 UA shows a significant urinary tract infection, when questioning the patient she denies dysuria, frequency, polyuria, or hematuria. She denies frequent history of UTIs. 1530 we'll give Rocephin 2 g IV for UTI. Patient reports the headache has resolved, she has no further nausea. Taking ice chips. [address] and labs with Dr. Dugan by phone, agreed with minimal of 100 mg Solu-Cortef IV prior to discharge, she will be discharged with Omnicef for 10 days and a day prednisone taper. She is to notify his office through the weekend or early next week if symptoms are not improving or worsen. Patient reports be feeling much improved from admission to the emergency department. 1700 discharge instructions and return precautions reviewed with the patient. Diagnostic Imaging Diagonstic Imaging: CT Plain Films/CT/US/NM/MRI: head Comments NAME: RIAZ JAV[facility] REC#: [id number] PT STATUS: REG ER : 1975 PHYSICIAN: NACHO HERRON ADMIT DATE: 01/14/19/ER Draft Date of Exam:01/14/19 CT HEAD WO PROCEDURE: CT head without contrast. TECHNIQUE: Multiple contiguous axial images were obtained through the brain without the use of intravenous contrast. Auto Exposure Controls were utilized during the CT exam to meet ALARA standards for radiation dose reduction. DATE: January 14, 2019. COMPARISON: None. INDICATION: 43-year-old female, severe headache. History of sinus surgery two weeks ago. FINDINGS: There is mucosal thickening of the maxillary sinuses. There is fluid layering in the right maxillary sinus with some areas of bubbly internal lucency. There is nonspecific opacification of the right frontal sinus and bilateral ethmoidal air cells. There is fluid layering in the right sphenoid sinus. The mastoid air cells and middle ears are well aerated, bilaterally. There is no identified aggressive bone destruction. The ventricles and cerebral spinal fluid spaces are of normal size and configuration for the patient's age. There is no mass effect or midline shift. There is no acute intracranial hemorrhage. There is no abnormal extra-axial fluid collection. IMPRESSION: 1. Multifocal paranasal sinus opacification including air-fluid levels in the right maxillary sinus and right sphenoid sinus. Recommend correlation for potential acute sinusitis. Degree of paranasal sinus opacification is increased since October 07, 2018. 2. No acute intracranial abnormality identified on noncontrast CT head evaluation. Dictated on workstation # [id number] Dict: 01/14/19 1623 Trans: 01/14/19 1635 PJE [id number] Interpreted by: CHAITANYA FELIPE MD Electronically signed by: Reviewed: Reviewed by Me Departure Impression Primary Impression: Migraine Qualified Codes: G43.019 - Migraine without aura, intractable, without status migrainosus Additional Impressions: UTI (urinary tract infection) Qualified Codes: N30.00 - Acute cystitis without hematuria Sinus infection Qualified Codes: J01.11 - Acute recurrent frontal sinusitis Disposition: HOME, SELF-CARE Condition: Improved Departure-Patient Inst. Decision time for Depature: 16:40 Referrals: PAM CRUZ DO (PCP/Family) Primary Care Physician Patient Instructions: Migraine Headache (DC), Sinusitis in Adults Add. Discharge Instructions: You may take Excedrin migraine at onset of headache. Take antibiotic and steroid as directed. Follow up with Dr. Dugan early next week if symptoms are not improving or worsen. If any concerns, worsening pain or fever greater than 101 through the weekend call Dr. Dugan. You may use ibuprofen 600 mg alternating with Tylenol 650 mg every 4 hours for pain or fever. Return to emergency department for fever greater than 101 not relieved by Tylenol or ibuprofen, intractable migraine, or new concerns. All discharge instructions reviewed with patient and/or family. Voiced understanding. Scripts Tramadol HCl (Tramadol HCl) 50 Mg Tablet 50 MG PO Q6H PRN for PAIN, #20 TAB 0 Refills Prov: NACHO HERRON 01/14/19 Prednisone (Prednisone) 10 Mg Tab.ds.pk 10 MG PO DAILY, #42 EA Take 6 tabs(60mg)daily,decrease by 1 tab(10mg)every other day. Prov: NACHO HERRON 01/14/19 Cefdinir (Cefdinir) 300 Mg Capsule 300 MG PO BID, #20 CAP 0 Refills Prov: NACHO HERRON 01/14/19 Work/School Note: Work Release Form Date Seen in the Emergency Department: Jan 14, 2019 Return to Work: Jan 17, 2019 Restrictions: No Restrictions Copy Copies To 1: VITALY DUGAN MD, AMY ARNP Jan 14, 2019 16:20
--- NOTE | 2019-01-14 16:35 | Diagnostic Imaging Report ---
PROCEDURE: CT head without contrast. TECHNIQUE: Multiple contiguous axial images were obtained through the brain without the use of intravenous contrast. Auto Exposure Controls were utilized during the CT exam to meet ALARA standards for radiation dose reduction. DATE: January 14, 2019. COMPARISON: None. INDICATION: 43-year-old female, severe headache. History of sinus surgery two weeks ago. FINDINGS: There is mucosal thickening of the maxillary sinuses. There is fluid layering in the right maxillary sinus with some areas of bubbly internal lucency. There is nonspecific opacification of the right frontal sinus and bilateral ethmoidal air cells. There is fluid layering in the right sphenoid sinus. The mastoid air cells and middle ears are well aerated, bilaterally. There is no identified aggressive bone destruction. The ventricles and cerebral spinal fluid spaces are of normal size and configuration for the patient's age. There is no mass effect or midline shift. There is no acute intracranial hemorrhage. There is no abnormal extra-axial fluid collection. IMPRESSION: 1. Multifocal paranasal sinus opacification including air-fluid levels in the right maxillary sinus and right sphenoid sinus. Recommend correlation for potential acute sinusitis. Degree of paranasal sinus opacification is increased since October 07, 2018. 2. No acute intracranial abnormality identified on noncontrast CT head evaluation. Dictated by: Dictated on workstation # [id number]
[2019-01-14] MEDS ORDERED: HYDROCORTISONE 100 MG/2 ML (Solu-CORTEF) VIAL IV ONE (17:00)
[2019-01-14] MEDS ORDERED: PRED10TA22 PO (17:04)
[2019-01-14] MEDS ORDERED: CEFD300C3 PO (17:04)
[2019-01-14] MEDS ORDERED: TRAM50TA2 PO (17:07)
[2019-01-14 17:30] VITALS: BP 155/107
== END 2019-01-14 17:34 | disposition home or self-care (01) ==
LOC: EDUNIT# 12:46 → ER 12:47
DX: G43.909 Migraine, unspecified, not intractable, without status migrainosus (principal); N39.0 Urinary tract infection, site not specified; J32.9 Chronic sinusitis, unspecified; Z79.52 Long term (current) use of systemic steroids; Z90.710 Acquired absence of both cervix and uterus
CPT/HCPCS: 36415; 70450; 80053; 81000; 85007; 85027; 86141; 87077; 87088; 87186

== ENCOUNTER → 2019-01-31 | Outpatient (CLI) | payer OTHER ==
[~2019-01-31] MED LIST changes: +CEFD300C3 PO; +PRED10TA22 PO; +TRAM50TA2 PO
[2019-01-31 16:42] LABS: BASOPHILS % (AUTO) 0 % (0-10); EOSINOPHILS # (AUTO) 0.1 10^3/uL (0.0-0.3); EOSINOPHILS % (AUTO) 1 % (0-10); HEMATOCRIT 42 % (35-52); HEMOGLOBIN 13.8 G/DL (11.5-16.0); LYMPHOCYTES # (AUTO) 3.1 X 10^3 (1.0-4.0); LYMPHOCYTES % (AUTO) 24 % (12-44); MEAN CORPUSCULAR HEMOGLOBIN 31 PG (25-34); MEAN CORPUSCULAR HGB CONC 33 G/DL (32-36); MEAN CORPUSCULAR VOLUME 93 FL (80-99); MEAN PLATELET VOLUME 8.7 FL (7.4-10.4); MONOCYTES # (AUTO) 1.2 X 10^3 (0.0-1.0); MONOCYTES % (AUTO) 9 % (0-12); NEUTROPHILS # (AUTO) 8.3 X 10^3 (1.8-7.8); NEUTROPHILS % (AUTO) 65 % (42-75); PLATELET COUNT 388 10^3/uL (130-400); RED CELL DISTRIBUTION WIDTH 13.7 % (10.0-14.5); WHITE BLOOD COUNT 12.7 10^3/uL (4.3-11.0)
--- NOTE | 2019-01-31 17:09 | Diagnostic Imaging Report ---
PROCEDURE: CT sinuses without contrast TECHNIQUE: Multiple contiguous axial images were obtained through the sinuses without the use of intravenous contrast. Coronal and sagittal reformations were then performed. Auto Exposure Controls were utilized during the CT exam to meet ALARA standards for radiation dose reduction. INDICATION: Status post sinus surgery. Persistent headache. COMPARISON: CT head from 01/14/2019. FINDINGS: Paranasal sinuses: Bilateral maxillary antrectomies and uncinectomies have been performed. Progressive opacification of the right maxillary sinus is present. Mucosal thickening in the left maxillary sinus has improved but persists. Bilateral ethmoidectomies have also been performed. There remains near-total opacification of bilateral posterior and anterior ethmoid air cells. This is unchanged since prior examination. Partial opacification of the right frontal sinus is unchanged. Left frontal sinus remains clear. There remain air-fluid levels within the sphenoid sinuses with progressive mucosal thickening since prior exam. Sinus drainage pathways are obstructed due to mucosal thickening and opacification. The antrectomies and uncinectomies result in patency of the left maxillary sinus drainage. However, the mucosal thickening does obstruct the right antrectomy site. Ethmoidectomies results in removal of the frontal recesses. Sphenoethmoidal recess on the right is obstructed. The left sphenoethmoidal recess is patent. Orbits: The intraconal and extraconal fat remains pristine. No features of subperiosteal abscess formation or intraorbital extension of infection. Globes remain symmetric. IMPRESSION: 1. There remains pansinus disease with features suggestive of acute on chronic sinusitis. No features of complication such as intraorbital or intracranial extension of infection. 2. Multiple of the sinus drainage pathways are obstructed due to mucosal thickening and opacification. Dictated by: Dictated on workstation # [id number]
== END ==
LOC: RAD 16:26
PROVIDERS: ATTEND Otolaryngology Otolaryngology/Facial Plastic Surgery
DX: J32.8 Other chronic sinusitis (principal); J34.89 Other specified disorders of nose and nasal sinuses; Z98.890 Other specified postprocedural states
CPT/HCPCS: 36415; 70486; 85025

== ENCOUNTER → 2020-02-14 | Outpatient (CLI) | payer OTHER ==
[~2020-02-14] MED LIST changes: +ACHD5005 PO; -HYDR-3062 PO; -TRAM50TA2 PO; +TRM50T PO
--- NOTE | 2020-02-14 12:47 | Diagnostic Imaging Report ---
INDICATION: Routine screening. COMPARISON: 07/09/2018 and 06/22/2017. TECHNIQUE: 2D and 3D bilateral screening mammography was performed with CAD. FINDINGS: Both breasts remain heterogeneously dense, limiting the sensitivity of mammography. The previously noted circumscribed lesion in the outer right breast at posterior depth has decreased in size, consistent with diminution of a cyst. No new mass or malignant appearing microcalcifications are seen. The axillae are unremarkable. IMPRESSION: No mammographic features suspicious for malignancy are identified. ACR BI-RADS Category 2: Benign findings. Result letter will be mailed to the patient. Note: At least 10% of breast cancer is not imaged by mammography. Dictated by: Dictated on workstation # [id number]
== END ==
LOC: RAD 10:35
PROVIDERS: ATTEND Obstetrics & Gynecology
DX: Z12.31 Encounter for screening mammogram for malignant neoplasm of breast (principal)
CPT/HCPCS: 77063; 77067

== ENCOUNTER → 2020-08-07 | Outpatient (CLI) | payer OTHER ==
--- NOTE | 2020-08-07 17:56 | Diagnostic Imaging Report ---
PROCEDURE: US Thyroid. TECHNIQUE: Multiple real-time grayscale images were obtained of the thyroid in various projections. INDICATION: Abnormal thyroid laboratory values. COMPARISON: There are no prior studies available for comparison. FINDINGS: The thyroid gland is not enlarged. The right lobe measures 4.9 x 1.5 x 1.6 cm and the left lobe is estimated to be 4.3 x 1.4 x 1.1 cm (normal gland size 4-5 x 2 x 2 cm or less). Each lobe is fairly homogeneous. However, there is a fairly well circumscribed 5 x 2 x 3 mm hypoechoic area in the right lobe. IMPRESSION: 1. The thyroid gland is not enlarged. 2. The small hypoechoic nodule in the right lobe is of uncertain etiology although most likely benign (TI-RADS 3). However, If further evaluation is desired, then a short-term (6-month) follow-up thyroid ultrasound exam would be recommended. Dictated by: Dictated on workstation # [id number]
== END ==
LOC: RAD 15:15
PROVIDERS: ATTEND Family Medicine
DX: E04.1 Nontoxic single thyroid nodule (principal); R94.6 Abnormal results of thyroid function studies
CPT/HCPCS: 76536

== ENCOUNTER → 2021-06-17 | Outpatient (CLI) | payer OTHER ==
--- NOTE | 2021-06-17 09:00 | Diagnostic Imaging Report ---
INDICATION: Routine screening. COMPARISON: 02/14/2020 and 07/09/2018. TECHNIQUE: 2D and 3D bilateral screening mammography was performed with CAD. FINDINGS: Both breasts are heterogeneously dense, limiting the sensitivity of mammography. The circumscribed lesion in the posterior outer right breast continues to decrease in size. No new mass is identified. No malignant-appearing microcalcifications are seen. The axillae are unremarkable. IMPRESSION: No mammographic features suspicious for malignancy are identified. ACR BI-RADS Category 2: Benign findings. Result letter will be mailed to the patient. Note: At least 10% of breast cancer is not imaged by mammography. Dictated by: Dictated on workstation # [id number]
== END ==
LOC: RAD 07:45
PROVIDERS: ATTEND Obstetrics & Gynecology
DX: Z12.31 Encounter for screening mammogram for malignant neoplasm of breast (principal)
CPT/HCPCS: 77063; 77067

== ENCOUNTER → 2022-06-18 | Outpatient (CLI) | payer OTHER ==
--- NOTE | 2022-06-18 09:43 | Diagnostic Imaging Report ---
INDICATION: Routine screening. Comparison is made with prior mammogram 06/17/2021 and 02/14/2020. 2-D and 3-D bilateral screening mammography was performed with CAD. Both breasts are heterogeneously dense, limiting the sensitivity of mammography. No mass or malignant-appearing microcalcifications are seen. Axillae are unremarkable. IMPRESSION: No mammographic features suspicious for malignancy are identified. ACR BI-RADS Category 1: Negative. Result letter will be mailed to the patient. Note: At least 10% of breast cancer is not imaged by mammography. BI-RADS Category 1 Dictated by: Dictated on workstation # [id number]
== END ==
LOC: RAD 07:24
PROVIDERS: ATTEND Family Medicine
DX: Z12.31 Encounter for screening mammogram for malignant neoplasm of breast (principal)
CPT/HCPCS: 77063; 77067

== ENCOUNTER → 2022-11-25 | Outpatient (CLI) | payer OTHER ==
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
== END ==
LOC: RAD 16:46
PROVIDERS: ATTEND Nurse Practitioner Family
DX: M47.816 Spondylosis without myelopathy or radiculopathy, lumbar region (principal); K59.00 Constipation, unspecified
CPT/HCPCS: 72100; 74018